=== PATIENT | female | born 1950 | race Caucasian/White ===

== ENCOUNTER 2019-10-07 10:50 | Emergency (ER) | payer MEDICARE, OTHER ==
[~2019-10-07] VITALS: Ht 157.5 cm; Wt 63.6 kg
[2019-10-07 11:00] VITALS: Ht 157.5 cm; Wt 63.6 kg
[2019-10-07] MEDS ORDERED: XANAX0.25 MG PO (11:02)
[2019-10-07] MEDS ORDERED: PRENAVITE1 TAB PO (11:02)
[2019-10-07] MEDS ORDERED: PROZAC10 MG PO (11:02)
[2019-10-07] MEDS ORDERED: PROTONIX40 MG PO (11:02)
[2019-10-07 11:39] LABS: BASOPHILS 0.2 % (0-2); EOSINOPHILS 0.3 % (0-7); HEMATOCRIT 40.6 % (36.0-48.0); HEMOGLOBIN 13.7 g/dL (12-16); IMMATURE GRANULOCYTES 0.2 % (0-5); LYMPHOCYTES 19.4 % (15-50); MCH 31.1 pg (26.0-34.0); MCHC 33.7 g/dL (31.0-37.0); MCV 92.3 fL (80.0-100.0); MEAN PLATELET VOLUME 10.1 fL (7.4-10.4); MONOCYTES 6.8 % (2-11); NEUTROPHILS 73.1 % (40-80); PLATELET COUNT 209 10x3/uL (130-400); RDW 12.3 % (11.5-14.5); WBC 9.3 10x3/uL (4.8-10.8)
[2019-10-07 11:48] LABS: ANION GAP 9.3 mmol/L (8-16); CALCIUM 9.4 mg/dL (8.5-10.1); CARBON DIOXIDE 27.6 mmol/L (21.0-32.0); CREATININE - SERUM 0.9 mg/dL (0.6-1.3); POTASSIUM - SERUM 3.9 mmol/L (3.5-5.1)
[2019-10-07 11:54] LABS: ALBUMIN 3.8 g/dL (3.4-5.0); BILIRUBIN - TOTAL 0.48 mg/dL (0.2-1.3)
[2019-10-07 13:15] LABS: BILIRUBIN NEGATIVE (NEGATIVE); EPITHELIAL CELLS OCC /hpf (0-5); GLUCOSE NEGATIVE (NEGATIVE); KETONE NEGATIVE (NEGATIVE); NITRITE NEGATIVE (NEGATIVE); UROBILINOGEN NORMAL (NORMAL); WHITE CELLS - URINE 0-5 /hpf (NEGATIVE)
[2019-10-07 13:16] LABS: BACTERIA FEW /hpf (NEGATIVE); RED CELLS - URINE RARE /hpf (0-5)
[2019-10-07] MEDS ORDERED: ZOFRAN ODT4 MG/UDTAB PO (14:00)
[2019-10-07 14:20] VITALS: BP 165/58
== END 2019-10-07 14:20 | disposition home or self-care (01) ==
LOC: D.ER 10:50
PROVIDERS: Family Medicine
DX: F41.9 Anxiety disorder, unspecified (principal); R06.00 Dyspnea, unspecified